=== PATIENT | female | born 1940 | race Caucasian/White ===

== ENCOUNTER 2023-08-01 13:49 | Outpatient (RCR) | payer OTHER, SELFPAY ==
--- NOTE | 2023-08-01 14:53 | PT.OPE ---
[facility] [place] [facility] Eval PT [facility] Outpatient Eval Start: 08/01/23 07:49 Freq: Status: Active Protocol: Document 08/01/23 07:49 ENM (Rec: 08/01/23 14:29 ENM [id number]) E-signed By Lorena Adam, DPT Physical Therapy Outpatient Evaluation Insurance Information Recert Due Date 10/24/23 Insurance Name Other; See Comments Insurance Information/Comments humana Medical Diagnosis pre op only left MORGAN DOS 08/05 Treating Diagnosis impaired gait, decreased hip strength, hip stiffness Referring MD Subjective Subjective Patient presents to PT for pre -op appointment prior to L MORGAN (DOS 08/05/23) to be performed by . She plans to have her post operative rehab at [facility] in [place]. She was given the ok by her surgeon to travel to [place] for the winter in 4 weeks. She just moved to a new place which is a condo that is easily accessible. Has a history of left sided sciatica which has improved after a back injection. Her hip is still not feeling well and has to be replaced. She notes impairments in balance at baseline. For additional information on AD and home set up information see pre-op flowsheet. PMHx: bilateral knee replacement, R hip replacement , heart failure, HTN, arthritis, Pain Comments stiffness and ache through left hip Date of Surgery (If applicable) 08/05/23 Current Work Status Retired Objective Other/Pertinent Objective AROM L and R knee WNL knee flexion to >120 hip flexion L 104 with tightness R 100 hip IR 50% limited on L hip ER WNL strength: hip flexors L 4/5 R 4+/5 knee extensors 5/5 B gait/balance: Patient ambulates with decreased knee and hip extension B slight instability with turning while walking that she is able to self correct Assessment Assessment/Impression Patient is an 83 year old female presenting for pre op visit prior to L MORGAN on DOS to be performed by Dr. Quinn. Patient has had both knees and right hip replaced in the past. Her left hip has been painful and stiff throughout the year which is why she is having it replaced. She has necessary assistive devices and caregivers in place for after the surgery. Upon assessment patient displays decreased hip ROM, decreased proximal hip strength and impaired gait pattern. Bharati will be seen post operatively at [facility] to reassess impairments that will be addressed with skilled care. Bharati would greatly benefit from skilled PT to progress strength, ROM and ambulation post operatively for return to PLOF. Primary Functional Limitations limited endurance Plan of Care Rehabilitation Potential Good Physical Therapy Goals After pre-op visit: ? Patient will be independent with HEP ? Patient will verbalize knowledge of stair navigation and proper sequencing ? Patient will have knowledge on home adaptations and use of assistive devices post operatively ? Patient will have knowledge of edema management Coordination/Communication With Referral Source Treatment Plan/Direct Interventions Gait Training,Ice/Cold/ Vasopneumatic,Joint Mobilization,Manual Therapy, Neuromuscular Re-ed,Self-Care/ Home Management,Therapeutic Activities,Therapeutic Exercises Frequency/Duration 1x visit prior to surgery on 08/05/23. Patient scheduled to start outpatient PT s/p L MORGAN at [facility] in [place]. Has HEP to start with pre- operatively. Patient Will Be Discharged From Therapy Completion of LTG(s), Independent w/HEP Evaluation Billing Untimed Code Treatment Minutes 22 Complexity Low Certification Information Initial Certification Date 08/01/23 Ending Certification Date 10/24/23 Provider Signature Shows Agreement With POC & Medical Necessity Physician Signature & Date Requested Please Sign/Date Here Physician Comment/Change : Physician NPI Number #
== END 2023-11-29 23:59 | disposition home or self-care (01) ==
PROVIDERS: PCP Orthopaedic Surgery; Visit Provider Orthopaedic Surgery
DX: M16.12 Unilateral primary osteoarthritis, left hip (principal); Z96.642 Presence of left artificial hip joint; R26.9 Unspecified abnormalities of gait and mobility; M25.659 Stiffness of unspecified hip, not elsewhere classified; R29.898 Other symptoms and signs involving the musculoskeletal system; Z51.89 Encounter for other specified aftercare
CPT/HCPCS: 97110; 97161

== ENCOUNTER 2023-08-05 08:33 | Day surgery (SDC) | payer OTHER, SELFPAY ==
[2023-08-05] VITALS (23 sets, daily range): BP systolic 131–179; BP diastolic 47–117; PULSE 55–72; RESP 14–18; TEMP 35.8–36.6; O2SAT 85–99; BMI 40.4
[2023-08-05] MEDS: OXYCODONE (CR) 10 MG TAB.ER.12H PO (09:30)
[2023-08-05] MEDS: ACETAMINOPHEN 500 MG TABLET 1000 MG PO ×3 (09:30→22:14)
[2023-08-05] MEDS: CELECOXIB 200 MG CAPSULE PO (09:30)
[2023-08-05] MEDS: LACTATED RINGERS 1000 ML 1,000 ML 100 ML IV (10:00)
[2023-08-05] MEDS: SODIUM CHLORIDE 0.9 % (FLUSH) 10 ML SYRINGE IVF (10:00)
[2023-08-05] MEDS: MIDAZOLAM HCL 1 MG/ML inj IVP (11:00)
[2023-08-05] MEDS: fentaNYL 100 MCG/2 ML inj IVP (11:00)
--- NOTE | 2023-08-05 11:00 | CRLHL7_ITS ---
For Patients: As a result of the Century Cures Act, medical imaging exams and procedure reports are released immediately into your electronic medical record. You may view this report before your referring provider. If you have questions, please contact your health care provider. INDICATION: Follow up left hip arthroplasty. TECHNIQUE: Two portable intraoperative images of the left hip. Fluoroscopic guidance utilized. FINDINGS: 64.2 minutes fluoroscopy time utilized intraoperatively. Left hip arthroplasty. The components are adequately aligned and well seated. Older right hip arthroplasty. IMPRESSION: New left hip arthroplasty. 64.2 seconds fluoroscopy time utilized intraoperatively. Dictated by Omar Mcnair MD @ 08/06/2023 10:29:03 AM (Electronically Signed)
--- NOTE | 2023-08-05 11:04 | SUR.PREOP ---
TIME?OUT:?1100 PT/RN/MDA?VERIFICATION?OF?SURGICAL?SITE,?PROCEDURE,?AND?CONSENT OBTAINED?PRIOR?TO?INVASIVE?PROCEDURE.
[2023-08-05] MEDS: CEFAZOLIN 2 GM INJ IVP (11:32)
--- NOTE | 2023-08-05 11:32 | W.PM.NB ---
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 Images saved: Yes Medications given in 5ml increments after negative aspiration: Ropivicaine %: 0.5 mL: 30 Needle gauge: 20 Decadron (mg): 10 Precedex (mcg): 25 Patient tolerated procedure well: Yes Additional comments: Needle noted below psoas tendon needle noted adjacent to LFCN Block Charges Block Charge (with Pro Fee): Other Periph Nerve Block Use of Ultrasound Machine for Block: Yes- US Guidance/pain block
--- NOTE | 2023-08-05 11:32 | W.ANESCHARGE ---
Anesthesia Charges Start Date/Time Anesthesia Start Date: 08/05/23 Anesthesia Start Time: 11:16 Stop Date/Time Anesthesia Stop Date: 08/05/23 Anesthesia Stop Time: 14:17 Summary Extremes of Age - Over 70 or under 1: MDA
--- NOTE | 2023-08-05 13:31 | PM.ORPRC ---
Procedure Note Date of procedure: 08/05/23 Procedure: PREOPERATIVE DIAGNOSIS: Left hip osteoarthritis POSTOPERATIVE DIAGNOSIS: Left hip osteoarthritis NAME OF OPERATION: Left total hip arthroplasty SURGEON: Monster Quinn MD PATIENT RESOURCE COORDINATOR: Belen Amin PA-C, ADA Cabrera IMPLANTS: 1. [employer] [place] # 54 sector ingrowth cup 2. 36 x 54 neutral polyethylene 3. Actis # 7 standard collared ingrowth stem 4. 36 + 8.5 cobalt chrome femoral head ANESTHESIA: General ESTIMATED BLOOD LOSS: 450 cc COMPLICATIONS: None SPECIMENS: None DRAINS: None PREOPERATIVE ANTIBIOTICS: Ancef 2 grams INDICATIONS: The patient is a 83-year-old with a longstanding history of severe, unrelenting left hip pain secondary to end-stage left hip osteoarthritis. Despite appropriate nonoperative management, including activity modification, use of an assist device, anti-inflammatories, tenn-tuu-gauqdyn pain medication, physical therapy and injections, they continue to have pain and disability. Operative intervention was offered. The risks, benefits and expected outcomes were discussed in detail. These included but were not limited to: Infection, bleeding, injury to blood vessel or nerve, venous thromboembolism. All questions were answered to their satisfaction. Use of an payroll assistant was necessary throughout the case for patient positioning and safety, soft tissue retraction and closure. A modifier 22 should be added to this case. Patient's weight of 110 kg with a BMI of 40.4 kg/meter squared made exposure quite difficult. This more than doubled the time typically required to complete the case. PROCEDURE: The patient was placed supine on the [place] table. General anesthesia was administered. The payroll assistant made sure the patient was properly positioned. The left hip was prepped and draped in the usual sterile fashion. The image intensifier was brought in for a perfect AP pelvis and a perfect double tear drop AP view of each hip which were used for intraoperative templating with our fluoroscopic guide. An oblique incision was made 3 cm distal and 3 cm lateral to the anterior superior iliac spine. The payroll assistant retracted the soft tissues to protect them. Subcutaneous dissection was taken with electrocautery to the superficial fascia. The fascia was divided in line with the incision. Blunt dissection was carried medially to the tensor fascia murray and sartorius interval. Deep dissection was carried with electrocautery. The circumflex vessels were cauterized and divided. The capsule was exposed and then divided in a T-fashion, tagged with #1 Ethibond sutures. Retractors were placed in the joint, held by the payroll assistant. The corkscrew was placed in the femoral head. The neck cut was made in the subcapital region. We made a second neck cut more distal. The napkin ring of bone was removed. The femoral head was removed intact. Acetabular retractors were placed, held by the payroll assistant. The labrum was sharply debrided. The capsule was released. The 43 mm reamer was used to the true medial wall. We then enlarged in 2 mm increments using the image intensifier for our reamer placement. We impacted the cup which had excellent purchase. We placed the hole eliminator and the polyethylene. Attention was then turned to the proximal femur. The limb was placed in 140 degrees of external rotation, maximum extension and adduction. A significant amount of time was spent releasing the capsule to allow us to deliver the femur into the wound and complete the femoral side safely. Retractors were held by the payroll assistant throughout the femoral preparation. The mattress and boxsprings supervisor and canal finder were used. Broaches were used to a stable size. The calcar reamer was used. Trial components were placed. The hip was reduced and was found to be stable with appropriate soft tissue tension. Length and offset had been nicely restored using the image intensifier and our fluoroscopic guide. Trial components were removed. The stem was impacted. We placed the femoral head. Again, the hip was reduced and was found to be stable with appropriate soft tissue tension. Length and offset had been nicely restored. The payroll assistant did a three minute dilute Betadine solution soak. The payroll assistant irrigated the wound with 3 liters of normal saline via pulse lavage. The payroll assistant repaired the anterior capsule with a #1 Vicryl and our previously placed Ethibond sutures. The payroll assistant closed the fascia over the tensor fascia murray with a #1 PDO Stratafix, subcutaneous tissues with 2-0 Vicryl, skin with a running 3-0 Stratafix and glue. A dry dressing was applied by the payroll assistant. Sponge and needle counts were correct x 2. The patient tolerated the procedure well; there were no apparent complications. They were awakened and extubated in the operating room, sent to the Post-Anesthesia Care Unit in satisfactory condition. PLAN: 1. The patient will be mobilized with physical therapy, weight-bearing as tolerates 2. Xarelto x 5 days then aspirin x 30 days will be used for DVT prophylaxis 3. The patient will be discharged once medically appropriate
--- NOTE | 2023-08-05 14:18 | P.ANES_ITS ---
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
--- NOTE | 2023-08-05 14:53 | SUR.PHASEI ---
patient met discharge criteria per anesthesia.
--- NOTE | 2023-08-05 18:22 | P.IMCN_ITS ---
Date of Consult Patient: Other Consult date: 08/05/23 Requesting Physician: Orthopedics Primary Care Provider: Meli Delarosa NP Consult Narrative Reason for consult: hypothyroidism, h/o TIA, porcine aortic valve, DM2 Narrative: Bharati Jesus is a 83 year old female with h/o TIAs, porcine aortic valve, DM2 underwent an elective left total hip arthroplasty today by Dr. Quinn. She is doing well postoperatively and does not have any pain whatsoever right now. In fact, she tells me, she feels very good. She notes that after her right hip arthroplasty in 2012 she had low blood pressures for about a week and could not take any of the narcotics because of hypotension. Review of Systems Status of ROS: Reports: 10 or more systems reviewed and unremarkable except as noted in History and below 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) ?G61.0 - Guillain-Bloomer syndrome (ICD-10) TIA (transient ischemic attack) ?G45.9 - Transient cerebral ischemic attack, unspecified (ICD-10) MITRA (obstructive sleep apnea) ?G47.33 - Obstructive sleep apnea (adult) (pediatric) (ICD-10) Hyperlipidemia ?E78.5 - Hyperlipidemia, unspecified (ICD-10) Hypothyroidism ?E03.9 - Hypothyroidism, unspecified (ICD-10) Chronic diastolic (congestive) heart failure ?I50.32 - Chronic diastolic (congestive) heart failure (ICD-10) Chronic kidney disease, stage 2 (mild) ?N18.2 - Chronic kidney disease, stage 2 (mild) (ICD-10) Hypertensive heart and chronic kidney disease with heart failure ?I13.0 - Hypertensive heart and chronic kidney disease with heart failure and stage 1 through stage 4 chronic kidney disease, or unspecified chronic kidney disease (ICD-10) Atherosclerotic heart disease of [place] coronary artery without angina pectoris ?I25.10 - Atherosclerotic heart disease of [place] coronary artery without an jamie pectoris (ICD-10) Bleeding gastric ulcer ?K25.4 - Chronic or unspecified gastric ulcer with hemorrhage (ICD-10) Surgical History (Updated 08/05/23 @ 18:54 by Daiana Soares MD) S/P total left hip arthroplasty ?Z96.642 - Presence of left artificial hip joint (ICD-10) H/O thyroidectomy (~2012) ?E89.0 - Postprocedural hypothyroidism (ICD-10) H/O heart artery stent ?Z95.5 - Presence of coronary angioplasty implant and graft (ICD-10) H/O esophagogastroduodenoscopy (~05/11/20) ?Z98.890 - Other specified postprocedural states (ICD-10) S/P CABG x 2 (~2014) ?Z95.1 - Presence of aortocoronary bypass graft (ICD-10) History of heart valve repair (02/13/15) ?Z98.890 - Other specified postprocedural states (ICD-10) History of mitral valve repair ?Z98.890 - Other specified postprocedural states (ICD-10) History of right-sided carotid endarterectomy ?Z98.890 - Other specified postprocedural states (ICD-10) History of total left knee replacement ?Z96.652 - Presence of left artificial knee joint (ICD-10) History of total right knee replacement ?Z96.651 - Presence of right artificial knee joint (ICD-10) History of total right hip replacement (2019) ?Z96.641 - Presence of right artificial hip joint (ICD-10) Family History (Updated 08/05/23 @ 18:50 by Daiana Soares MD) Maternal Grandfather Cardiac arrhythmia Heart disease Mother Cardiac arrhythmia Coronary artery disease Heart disease High blood pressure Mitral valve prolapse Maternal Grandmother Heart disease Myocardial infarction Father High blood pressure Muscular wasting and disuse atrophy Paternal Grandmother Pemphigus vulgaris Social History (Updated 08/05/23 @ 18:51 by Daiana Soares MD) Narrative: Denies tobacco use, quit 40 years ago. Drinks 2 drinks per week. What is your current living situation?: I presently have a place to live In the past 12 months, utilities in danger of being shut off: no In past 12 months, lack of transportation kept you from medical appts, meetings, work, or getting things needed for daily living: no In the past 12 mos, have been you worried that your food would run out before you had money to buy more?: never true In the past 12 mos, the food you bought just didn't last and you didn't have money to buy more?: never true Highest level of school completed/degree received: Associate degree: occupational, technical, vocational program Smoking Status: Former smoker What tobacco products do you use: cigarettes Smoking packs per day: 0.2 Smoking cigarettes per day: 4.0 Smoking quit date/years: >15 years ago Do you use any of these nicotine containing products: None Second hand tobacco smoke exposure: No How often do you have a drink containing alcohol: 2-3 times a week Alcohol type: wine How many standard drinks containing alcohol do you have on a typical day: 1 or 2 How often do you have six or more drinks on one occasion: Never AUDIT-C Alcohol total score: 3 Non-prescribed substance use: marijuana (any form) Non-prescribed substance use details: CBD roll-on for shoulders Caffeine: Yes How often does anyone, including family, friends and others, physically hurt you : never How often does anyone, including family, friends and others, insult or talk down to you: never How often does anyone, including family, friends and others, threaten you with harm: never How often does anyone, including family, friends and others, scream or curse at you: never service: No Meds Home Medications and Allergies Home Medications Medication Instructions Recorded Confirmed Type carvedilol phosphate 40 mg 80 mg PO DAILY 05/28/23 08/05/23 History capsule,[id number] multiphase levothyroxine 112 mcg tablet 112 mcg PO DAILY 05/28/23 08/05/23 History (Synthroid) nitroglycerin 0.4 mg sublingual 0.4 mg sublingual Q5M PRN 05/28/23 08/05/23 History tablet rosuvastatin 10 mg tablet 10 mg PO .COMPLEX 05/28/23 08/05/23 History spironolactone 25 mg tablet 25 mg PO DAILY 05/28/23 08/05/23 History furosemide 40 mg tablet 40 mg PO QHS 07/30/23 08/05/23 History olmesartan 40 mg tablet 40 mg PO QHS 07/30/23 08/05/23 History ascorbic acid (vitamin C) 500 mg 1 g PO DAILY 08/05/23 08/05/23 History tablet cholecalciferol (vitamin D3) 25 25 mcg PO DAILY 08/05/23 08/05/23 History mcg (1,000 unit) tablet hydrocortisone 2.5 % topical cream 1 applic topical BID PRN 08/05/23 08/05/23 History melatonin 5 mg tablet 5 mg PO HS PRN 08/05/23 08/05/23 History tirzepatide 5 mg/0.5 mL 5 mg subcut QWEEK 08/05/23 08/05/23 History subcutaneous pen injector (Marycarmen) vitamin B complex 1 tab PO DAILY 08/05/23 08/05/23 History Home Medication Comments: She tells me that she takes all of her blood pressure medications at night, even the furosemide. Allergies Allergy/AdvReac Type Severity Reaction Status Date / Time ibuprofen Allergy Unknown Unknown Verified 08/05/23 09:06 influenza virus vaccine, Allergy Unknown Unknown Verified 08/05/23 09:06 specific Qgqhuor-[id number]-GcV Reductase Allergy Unknown Unknown Verified 08/05/23 09:06 Inhibitor triamcinolone Allergy Unknown Unknown Verified 08/05/23 09:06 gluten AdvReac bloating Verified 05/28/23 10:05 morphine AdvReac nausea and Verified 05/28/23 10:05 vomiting Exam Narrative: Exam Narrative: General: No acute distress. Wearing CPAP, sleeping when I walked in, aroused easily and then alert and oriented x3 for our conversation. Obese. HEENT: Normocephalic atraumatic, pupils equally round and reactive to light and accommodation. Oropharynx clear. Mucous membranes are moist. No cervical lymphadenopathy, thyromegaly or carotid bruits. No JVD. Cardiovascular: Regular rate and rhythm. No murmurs, gallops, or rubs. Chest: No increased work of breathing. Clear to auscultation bilaterally. No crackles or wheezes. Abdomen: Bowel sounds present. Soft, nondistended, nontender. No hepatosplenomegaly or masses. Extremities: Left hip bandage is clean, dry, and intact. No edema, no cyanosis or clubbing. Skin: No jaundice, no pallor, no rashes. Const: Vital Signs, click to edit/add: Vital Signs - 24 hr 08/05/23 09:12 08/05/23 11:03 08/05/23 11:10 Temperature 97.1 F L Pulse Rate 62 61 61 Pulse Rate [Right Pulse Oximeter] Respiratory Rate 16 16 16 Blood Pressure 142/71 H 165/69 H 131/71 Blood Pressure [Le ft Arm] Pulse Oximetry 96 99 95 Oxygen Delivery Me thod Room Air Nasal Cannula Nasal Cannula Oxygen Flow Rate 2 2 08/05/23 14:12 08/05/23 14:15 08/05/23 14:20 Temperature 97.9 F 97.9 F 97.9 F Pulse Rate 60 60 59 L Pulse Rate [Right Pulse Oximeter] Respiratory Rate 16 18 14 Blood Pressure 148/80 H 138/82 144/78 H Blood Pressure [Le ft Arm] Pulse Oximetry 93 91 91 Oxygen Delivery Me thod Room Air Room Air Room Air Oxygen Flow Rate 08/05/23 14:25 08/05/23 14:30 08/05/23 14:35 Temperature 97.9 F 97.9 F 97.9 F Pulse Rate 58 L 59 L 60 Pulse Rate [Right Pulse Oximeter] Respiratory Rate 17 14 14 Blood Pressure 148/82 H 157/81 H 163/86 H Blood Pressure [Le ft Arm] Pulse Oximetry 94 93 92 Oxygen Delivery Me thod Room Air Room Air Room Air Oxygen Flow Rate 08/05/23 14:40 08/05/23 14:50 08/05/23 14:50 Temperature 97.5 F L 96.5 F L 96.5 F L Pulse Rate 59 L 60 Pulse Rate [Right Pulse Oximeter] 60 Respiratory Rate 15 14 14 Blood Pressure 163/82 H Blood Pressure [Le ft Arm] 164/74 H 164/74 H Pulse Oximetry 94 94 Oxygen Delivery Me thod Room Air Room Air Room Air Oxygen Flow Rate 2 08/05/23 15:00 08/05/23 15:00 08/05/23 15:17 Temperature 96.5 F L 96.5 F L 96.5 F L Pulse Rate Pulse Rate [Right Pulse Oximeter] 55 L 61 58 L Respiratory Rate 14 14 14 Blood Pressure Blood Pressure [Le ft Arm] 157/47 H 153/117 H 170/75 H Pulse Oximetry 93 85 L 89 Oxygen Delivery Me thod Room Air Room Air Room Air Oxygen Flow Rate 08/05/23 15:30 08/05/23 15:46 08/05/23 16:04 Temperature 96.5 F L Pulse Rate Pulse Rate [Right Pulse Oximeter] 58 L 61 59 L Respiratory Rate 14 16 16 Blood Pressure Blood Pressure [Le ft Arm] 153/117 H 157/80 H 169/76 H Pulse Oximetry 89 90 93 Oxygen Delivery Me thod Room Air Room Air Room Air CPAP Oxygen Flow Rate 2 08/05/23 16:45 08/05/23 17:02 08/05/23 17:31 Temperature Pulse Rate Pulse Rate [Right Pulse Oximeter] 60 57 L 59 L Respiratory Rate 16 16 16 Blood Pressure Blood Pressure [Le ft Arm] 145/71 H 144/74 H 146/70 H Pulse Oximetry 97 94 92 Oxygen Delivery Me thod CPAP CPAP CPAP Oxygen Flow Rate Assessment and Plan Assessment and plan (1) S/P total left hip arthroplasty: Problem comment: - 08/05/2023 Dr. Quinn - doing well. Pain well controlled. Routine postop cares. Status: Acute (2) Osteoarthritis of left hip: Status: Chronic (3) Type 2 diabetes mellitus: Problem comment: The patient tells me that she does not actually have this diagnosis, but took metformin for weight loss. She says her hemoglobin A1cs have always been good, in the low 6% range. I think it is likely that she actually has diet-controlled type 2 diabetes mellitus. Check morning glucose on labs tomorrow. Status: Chronic (4) Chronic kidney disease, stage 2 (mild): Status: Chronic (5) Chronic diastolic (congestive) heart failure: Problem comment: Will give furosemide tomorrow morning. Status: Chronic (6) Hypothyroidism: Problem comment: Continue levothyroxine at outpatient dosing Status: Chronic (7) MITRA (obstructive sleep apnea): Problem comment: - Uses CPAP, has it here with her Status: Chronic (8) Hyperlipidemia: Problem comment: Continue rosuvastatin. Status: Chronic (9) Ischemic heart disease: Problem comment: 2003 right coronary artery stent Status: Chronic (10) Hypertension: Problem comment: Hold her usual antihypertensives. These can be restarted if she has elevated blood pressures or upon discharge. Status: Chronic Plan VTE prophylaxis with rivaroxaban transitioning to twice a day aspirin.
--- NOTE | 2023-08-05 18:22 | CRLHL7_ITS ---
For Patients: As a result of the Cures Act, medical imaging exams and procedure reports are released immediately into your electronic medical record. You may view this report before your referring provider. If you have questions, please contact your health care provider. INDICATION: Follow up surgery. TECHNIQUE: AP postoperative view of the lower pelvis and hips. Single postoperative cross-table lateral view of the left hip. FINDINGS: Left hip arthroplasty. The components are adequately aligned and well seated. Air within the soft tissues related to the surgery. Older right hip arthroplasty. IMPRESSION: New left hip arthroplasty. The components are adequately aligned and well seated. Dictated by Omar Mcnair MD @ 08/06/2023 10:27:58 AM (Electronically Signed)
--- NOTE | 2023-08-05 19:31 | PC.NURSE ---
end of shift., pt came back from pacu @ 1500. she is alert x4. no pain so far. she was sleeping and Sao2 was 77% tried repositioned and TCDB and IS. then put her CPAP on. IV is patent dressing is C/D/I/ she is taking in ice and jello. no void so far, active ice to the hip. fall risk and alarms are on. turn and repo. IS to [address]
[2023-08-05] MEDS: CEFAZOLIN 2 GM in 0.9 % SODIUM CHLORIDE Mini-bag 100 ML IVPB (19:35)
[2023-08-05] MEDS: SENNOSIDES 1 TAB TABLET 2 TAB PO (22:16)
[2023-08-06] VITALS: BP 152/71; PULSE 72; RESP 18; TEMP 36.4; O2SAT 92
[2023-08-06] MEDS: OXYCODONE 5 MG TABLET PO ×3 (00:16→10:53)
[2023-08-06] MEDS: ACETAMINOPHEN 500 MG TABLET 1000 MG PO ×2 (03:41→10:53)
[2023-08-06] MEDS: CEFAZOLIN 2 GM in 0.9 % SODIUM CHLORIDE Mini-bag 100 ML IVPB (03:42)
[2023-08-06 03:45] VITALS: BP 145/63; PULSE 74; RESP 18; TEMP 36.7; O2SAT 95
--- NOTE | 2023-08-06 05:19 | PC.NURSE ---
Pt alert and oriented x3. Afebrile. Pt reports 4/10 pain in left hip, pain managed with ice applied to site and PRN and scheduled medications. Pt's left hip dressing is CDI. Pt is up A1/SBA to restroom. Pt slept throughout most of night with CPAP on. Night uneventful.
[2023-08-06 06:45] LABS: Hematocrit 33.4 % (33.0-51.0); Hemoglobin* 10.9 gm/dL (12.0-16.0); Immature Granulocytes Abs Auto 0.01 K/uL (0.00-0.30); Immature Granulocytes Pct Auto 0.1 %; Lymphocytes Percent Auto 8.2 % (20-44); Mean Corpuscular HGB Conc 33 gm/dL (32-36); Mean Corpuscular Hemoglobin 31 pg (26-34); Mean Corpuscular Volume 95 fL (80-100); Monocytes Percent Auto 7.5 % (0.0-11.0); Neutrophils Percent Auto 84.2 % (42.0-72.0); Platelet Count* 240 K/uL (140-440); RDW Coefficient of Variation % 14.6 % (11.5-15.5); Red Blood Count 3.53 m/uL (4.00-5.20); White Blood Count* 10.67 K/uL (4.50-11.00)
[2023-08-06 07:00] LABS: Potassium* 4.2 mmol/L (3.6-5.1); Sodium* 138 mmol/L (135-149)
[2023-08-06 07:03] LABS: Creatinine* 0.8 mg/dL (0.5-1.5); Est. Creatinine Clearance* 36.81; Estimated Glomerular Filt Rate 73 ml/min
[2023-08-06 07:04] LABS: Blood Urea Nitrogen* 20 mg/dL (7-30)
[2023-08-06 07:07] LABS: Slide Review Reflex No
[2023-08-06 07:31] VITALS: BP 139/61; PULSE 73; RESP 16; TEMP 36.7; O2SAT 97
[2023-08-06] MEDS: LEVOTHYROXINE 112 MCG TABLET PO (07:36)
[2023-08-06] MEDS: FUROSEMIDE 40 MG TABLET PO (08:01)
[2023-08-06] MEDS: ASCORBIC ACID 500 MG TABLET 1000 MG PO (08:01)
[2023-08-06] MEDS: RIVAROXABAN 10 MG TABLET PO (08:01)
[2023-08-06] MEDS: SENNOSIDES 1 TAB TABLET 2 TAB PO (08:01)
--- NOTE | 2023-08-06 08:55 | PM.ORPN ---
Subjective Subjective Time Seen by Provider: 07:30 Date Seen: 08/06/23 Principal diagnosis: Status post left total hip arthroplasty Interval history: Bharati is comfortable. She has minimal discomfort. She will discharge today to home with her . He accompanies her this morning. Ortho Exam Narrative Exam Narrative: Alert and oriented x3. Patient is in no acute distress. Converses without labored breathing. Hearing is grossly intact. Ambulates with a walker. Examination of the left hip shows the dressing is intact. Mild soft tissue edema. No sign of infection. No erythema or warmth. Quad strength 5/5. CMS intact left lower extremity. Const Vital Signs, click to edit/add: Vital Signs - 24 hr 08/05/23 09:12 08/05/23 11:03 08/05/23 11:10 Temperature 97.1 F L Pulse Rate 62 61 61 Pulse Rate [Right Pulse Oximeter] Respiratory Rate 16 16 16 Blood Pressure 142/71 H 165/69 H 131/71 Blood Pressure [Left Arm] Pulse Oximetry 96 99 95 Oxygen Delivery Method Room Air Nasal Cannula Nasal Cannula Oxygen Flow Rate 2 2 08/05/23 14:12 08/05/23 14:15 08/05/23 14:20 Temperature 97.9 F 97.9 F 97.9 F Pulse Rate 60 60 59 L Pulse Rate [Right Pulse Oximeter] Respiratory Rate 16 18 14 Blood Pressure 148/80 H 138/82 144/78 H Blood Pressure [Left Arm] Pulse Oximetry 93 91 91 Oxygen Delivery Method Room Air Room Air Room Air Oxygen Flow Rate 08/05/23 14:25 08/05/23 14:30 08/05/23 14:35 Temperature 97.9 F 97.9 F 97.9 F Pulse Rate 58 L 59 L 60 Pulse Rate [Right Pulse Oximeter] Respiratory Rate 17 14 14 Blood Pressure 148/82 H 157/81 H 163/86 H Blood Pressure [Left Arm] Pulse Oximetry 94 93 92 Oxygen Delivery Method Room Air Room Air Room Air Oxygen Flow Rate 08/05/23 14:40 08/05/23 14:50 08/05/23 14:50 Temperature 97.5 F L 96.5 F L 96.5 F L Pulse Rate 59 L 60 Pulse Rate [Right Pulse Oximeter] 60 Respiratory Rate 15 14 14 Blood Pressure 163/82 H Blood Pressure [Left Arm] 164/74 H 164/74 H Pulse Oximetry 94 94 Oxygen Delivery Method Room Air Room Air Room Air Oxygen Flow Rate 2 08/05/23 15:00 08/05/23 15:00 08/05/23 15:17 Temperature 96.5 F L 96.5 F L 96.5 F L Pulse Rate Pulse Rate [Right Pulse Oximeter] 55 L 61 58 L Respiratory Rate 14 14 14 Blood Pressure Blood Pressure [Left Arm] 157/47 H 153/117 H 170/75 H Pulse Oximetry 93 85 L 89 Oxygen Delivery Method Room Air Room Air Room Air Oxygen Flow Rate 08/05/23 15:30 08/05/23 15:46 08/05/23 16:04 Temperature 96.5 F L Pulse Rate Pulse Rate [Right Pulse Oximeter] 58 L 61 59 L Respiratory Rate 14 16 16 Blood Pressure Blood Pressure [Left Arm] 153/117 H 157/80 H 169/76 H Pulse Oximetry 89 90 93 Oxygen Delivery Method Room Air Room Air Room Air CPAP Oxygen Flow Rate 2 08/05/23 16:45 08/05/23 17:02 08/05/23 17:31 Temperature Pulse Rate Pulse Rate [Right Pulse Oximeter] 60 57 L 59 L Respiratory Rate 16 16 16 Blood Pressure Blood Pressure [Left Arm] 145/71 H 144/74 H 146/70 H Pulse Oximetry 97 94 92 Oxygen Delivery Method CPAP CPAP CPAP Oxygen Flow Rate 08/05/23 18:00 08/05/23 19:00 08/05/23 20:00 Temperature 96.7 F L 97.7 F Pulse Rate Pulse Rate [Right Pulse Oximeter] 61 70 69 Respiratory Rate 16 16 18 Blood Pressure Blood Pressure [Left Arm] 171/82 H 156/73 H 179/83 H Pulse Oximetry 94 95 92 Oxygen Delivery Method CPAP CPAP Room Air Oxygen Flow Rate 08/05/23 21:00 08/06/23 00:00 08/06/23 03:45 Temperature 97.6 F 97.5 F L 98.0 F Pulse Rate Pulse Rate [Right Pulse Oximeter] 72 72 74 Respiratory Rate 18 18 18 Blood Pressure Blood Pressure [Left Arm] 163/77 H 152/71 H 145/63 H Pulse Oximetry 92 92 95 Oxygen Delivery Method Room Air CPAP CPAP Oxygen Flow Rate 08/06/23 07:31 Temperature 98.1 F Pulse Rate Pulse Rate [Right Pulse Oximeter] 73 Respiratory Rate 16 Blood Pressure Blood Pressure [Left Arm] 139/61 Pulse Oximetry 97 Oxygen Delivery Method Room Air Oxygen Flow Rate Assessment and Plan Assessment and plan (1) S/P total left hip arthroplasty: Problem details: - 08/05/2023 Dr. Quinn Status: Acute Assessment and Plan: Plan for discharge is today to home if they meet discharge criteria. DVT prophylaxis includes Xarelto 10 mg daily for total of 5 days, then aspirin 81 mg twice daily for 30 days, Gee stockings x1 month may remove for 1 hr per day, frequent ambulation Remove dressing 1 week. Observe wound and phone Orthopedics with any questions or concerns Use Ice on operative hip unrestricted. Return to clinic in 1 week with PA for a wound check Return to clinic in 6 weeks with surgeon Minimize narcotic use. Wean off and discontinue soon as possible. Activities as tolerated. No strenuous activity. Attend outpt PT
[2023-08-06 10:44] VITALS: BP 153/59; PULSE 80; RESP 16; TEMP 36.2; O2SAT 95
--- NOTE | 2023-08-06 11:11 | PC.NURSE ---
Patient was discharged home with and daughter. PIV taken out and catheter intact. Vital signs within normal limits. Pain manageable with PO meds. Denies nausea/vomiting. Voiding without difficulty. Passing flatus. Lung sounds clear. Incision clean dry and intact. CWMS within normal limits. All questions answered. Left via wheelchair escort.
== END 2023-08-06 11:12 | disposition home or self-care (01) ==
LOC: OR 08:34 → MEDSURG 08:37
PROVIDERS: PCP Registered Nurse; Visit Provider Orthopaedic Surgery
PROC: (CPT 27130; principal; 2023-08-05 11:00)
DX: M16.12 Unilateral primary osteoarthritis, left hip (principal); G89.18 Other acute postprocedural pain; Z86.73 Personal history of transient ischemic attack (TIA), and cerebral infarction without residual deficits; G47.33 Obstructive sleep apnea (adult) (pediatric); I13.0 Hypertensive heart and chronic kidney disease with heart failure and stage 1 through stage 4 chronic kidney disease, or unspecified chronic kidney disease; I50.32 Chronic diastolic (congestive) heart failure; N18.2 Chronic kidney disease, stage 2 (mild); E11.22 Type 2 diabetes mellitus with diabetic chronic kidney disease; Z79.84 Long term (current) use of oral hypoglycemic drugs; Z95.4 Presence of other heart-valve replacement; E03.9 Hypothyroidism, unspecified
CPT/HCPCS: 27130; 01214; 36415; 64450; 73501; 76000; 76942; 82565; 84132; 84295; 84520; 85025; 86850; 86900; 86901; 97110; 97116; 97162; 97165; 97535; 99100; A9270; C1776; J0330; J0690; J1100; J1170; J2250; J2704; J2795; J3010; J3490; J7120